=== PATIENT | male | born 1930 | race Two or more races ===

== ENCOUNTER 2018-07-12 10:47 | Emergency (ER) | payer MEDICARE, MEDICAID ==
[2018-07-13] MEDS ORDERED: LORazepam 2 MG/ML VIAL IM ONE (11:51)
--- NOTE | 2018-07-13 12:05 | RADIOLOGY IMAGING REPORT ---
FACILITY: [facility] PATIENT NAME: Randall Joseph : 1930 MR: [id number] V: [id number] EXAM DATE: ORDERING PHYSICIAN: RENE PIÑA TECHNOLOGIST: Location: [facility] Patient: Randall Joseph : 1930 Visit/Account:[id number] Date of Sevice: 07/12/2018 EXAMINATION: CT of the pelvis HISTORY: Trauma. TECHNIQUE: Axial CT through the pelvis without intravenous contrast administration. Coronal and sagit richa reformats. One of the following dose optimization techniques was utilized in the performance of this exam: Autom ated exposure control; adjustment of the mA and/or kV according to the patient's size; or use of an i terative reconstruction technique. Specific details can be referenced in the facility's radiology C T exam operational policy. COMPARISON: None available. FINDINGS: Bones: No evidence of acute fracture or dislocation. No aggressive osseous lesions. Joint spaces: Left hip arthroplasty with no evidence of hardware failure. Right hip osteoarthritis. 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 Alignment: Normal. Soft tissues: Multiple bladder diverticula. Mild aortoiliac calcification without aneurysm. IMPRESSION: 1. No evidence of acute fracture or dislocation. 2. Left hip arthroplasty with no evidence of hardware failure. 3. Right hip osteoarthritis. 4. Multiple bladder diverticula. Results were called to RENE PIÑA at 07/12/2018 12:45 PM. Report Dictated By: Hai Rowley MD at 07/13/2018 11:56 AM Report E-Signed By: Hai Rowley MD at 07/13/2018 12:00 PM [id number]
[2018-07-13] MEDS ORDERED: LORazepam 2 MG/ML VIAL IVP ONE (14:30)
[2018-07-14] MEDS ORDERED: LORazepam 2 MG/ML VIAL IM ONE (13:20)
--- NOTE | 2018-08-05 07:40 | ER Report ---
History and Physical Time Seen By MD: 07:38 HPI/ROS CHIEF COMPLAINT: Fall hip pain HISTORY OF PRESENT ILLNESS: 87-year-old male status post hip replacement a mechanical fall complaining of left hip pain no head or neck trauma no additional complaints noted REVIEW OF SYSTEMS: Respiratory: No cough, no dyspnea. Cardiovascular: No chest pain, no palpitations. Gastrointestinal: No vomiting, no abdominal pain. Musculoskeletal: Hip pain. Remainder of the 14 system rev: Yes Allergies: Coded Allergies: No Known Drug Allergies (Unverified , 07/13/18) Reviewed Nurses Notes: Yes Old Medical Records Reviewed: Yes Physical Exam General Appearance: The patient is alert, has no immediate need for airway protection and no current signs of toxicity. [ ] Eyes: Pupils equal and round no injection. Respiratory: Chest is non tender, lungs are clear to auscultation. Cardiac: regular rate and rhythm [ ] Gastrointestinal: Abdomen is soft and non tender, no masses, bowel sounds normal. Musculoskeletal: Pain with palpation to the left. No obvious deformity neurovascularly intact Neck is supple and non tender. Other than stated above Skin: No rashes or lesions. [ ] DIFFERENTIAL DIAGNOSIS: After history and physical exam differential diagnosis was considered for left hip fracture dislocation subluxation Medical Decision Making ED Course/Re-evaluation ED Course Patient mechanical fall pelvis CT shows no obvious fractures dislocations or issues with prosthesis Decision to Disposition Date: August 05, 2018 Decision to Disposition Time: 07:39 Depart Departure Impression: Primary Impression: Hip pain Condition: Improved Disposition: HOME OR SELF-CARE Referrals: KUNAL ALEGRIA MD (PCP) Departure Forms: Medications Reconciliation, Patient Portal Information, ER Transition Record RENE PIÑA MD August 05, 2018 07:40
== END 2018-07-12 13:36 | disposition home or self-care (01) ==
LOC: ER 10:50
DX: M25.552 Pain in left hip (principal)
CPT/HCPCS: 72192; 96372; 99284; J2060